=== PATIENT | male | born 1995 | race Caucasian/White ===

== ENCOUNTER 2017-08-26 21:44 | Emergency (ER) | payer OTHER ==
[~2017-08-26] VITALS: Ht 175.3 cm; Wt 161.3 kg
[~2017-08-26 21:44] MED LIST: METHYLPHENIDATE5 MG
[2017-08-26 22:05] LABS: HEMATOCRIT 42.1 % (38.0-50.0); MCH 28.1 PG (29.0-34.0); MCHC 33.3 G/DL (30.0-36.0); MCV 84.4 FL (86-99); MEAN PLAT.VOLUME 9.5 uM^3 (9.0-12.4); PLATELET COUNT 319 K/uL (156-360); RBC DIS.WIDTH-CV 12.3 % (11.8-14.6); RBC DIS.WIDTH-SD 37.3 % (39-53); RED BLOOD COUNT 4.99 M/uL (4.00-5.50); WHITE BLOOD COUNT 7.9 K/uL (4.1-10.2)
[2017-08-26 22:18] LABS: CHLORIDE 106 mEq/L (99-109); SODIUM 139 mEq/L (136-147)
[2017-08-26 22:20] LABS: GLUCOSE 101 mg/dL (70-99)
[2017-08-26 22:21] LABS: ANION GAP 6 MEQ/L (2-14)
[2017-08-26 22:22] LABS: TOTAL BILIRUBIN 0.4 mg/dL (0.0-1.0)
[2017-08-26 22:23] LABS: ALKALINE PHOSPHATASE 89 IU/L (3-129)
[2017-08-26 22:24] LABS: GFR ESTIMATE (CALCULATED) > 59 mL/min/
[2017-08-26 22:25] LABS: UREA NITROGEN (BUN) 13 mg/dL (9-23)
[2017-08-26 22:28] LABS: ADD MIUA? NO; BILIRUBIN NEGATIVE; BLOOD NEGATIVE; COLOR YELLOW ((YELLOW)); GLUCOSE (STRIP) NEGATIVE; KETONES NEGATIVE; LEUKOCYTES NEGATIVE; NITRITE NEGATIVE; PROTEIN (STRIP) NEGATIVE; SPECIFIC GRAVITY 1.021 (1.000-1.030); UCUL ADDED? NO; UROBILINOGEN 0.2 MG/DL (0.2-1.0)
[2017-08-26 23:58] VITALS: BP 130/76
== END 2017-08-26 23:59 | disposition home or self-care (01) ==
LOC: EME 21:44
DX: R19.7 Diarrhea, unspecified (principal); R10.30 Lower abdominal pain, unspecified; J45.909 Unspecified asthma, uncomplicated; Z88.0 Allergy status to penicillin
CPT/HCPCS: 80053; 81003; 85027; 99281; 99284